=== PATIENT | female | born 1960 | race American Indian/Alaskan Native ===

== ENCOUNTER 2019-07-04 13:12 | Inpatient (IN) | payer BC ==
--- NOTE | 2019-07-04 13:18 | Emergency Department Report ---
HPI - General Time Seen by Provider: 07/04/19 13:14 - HPI HPI: Charge nurse triage --> Room 19 The patient is a 59-year-old female presenting with a chief complaint of dysarthria. Family states at approximately 12:15 this afternoon the patient had difficulty speaking. Patient complained of a slight headache. No other symptoms were noted. EMS was called and arrived on scene states the patient was aphasic. Upon arrival to the ED the patient's symptoms have improved and she is able to speak normally. Location: [See above] Duration: [See above] Quality: [See above] Severity: [See above] Modifying factors: [see above] Context: [see above] Mode of transportation: [not driving] ED Past Medical Hx - Past Medical History Hx Hypertension: Yes Hx Diabetes: Yes - Surgical History Past Surgical History?: No - Family History Family history: no significant ED Review of Systems ROS: Stated complaint: NEURO ISSUES Other details as noted in HPI Constitutional: no symptoms reported Eyes: denies: eye pain ENT: denies: throat pain Respiratory: no symptoms reported Cardiovascular: denies: chest pain Endocrine: no symptoms reported Gastrointestinal: denies: abdominal pain Genitourinary: denies: dysuria Musculoskeletal: denies: back pain Neurological: headache, other (difficulty speaking) Physical Exam - Physical Exam Physical Exam: GENERAL: The patient is well-developed well-nourished female lying on stretcher not appearing to be in acute distress. [] HEENT: Normocephalic. Atraumatic. Extraocular motions are intact. Patient has moist mucous membranes. NECK: Supple. Trachea midline CHEST/LUNGS: There is no respiratory distress noted. HEART/CARDIOVASCULAR: Regular. There is no tachycardia. There is no gallop rub or murmur. ABDOMEN: Abdomen is soft, nontender. Patient has normal bowel sounds. There is no abdominal distention. SKIN: There is no rash. There is no edema. There is no diaphoresis. NEURO: The patient is awake, alert, and oriented. The patient is cooperative. The patient has no focal neurologic deficits. The patient has normal speech. Cranial nerves II through XII grossly intact, no drift MUSCULOSKELETAL: There is no evidence of acute injury. ED Course - Consultations Consultation #1: 07/04/19 14:06 Case discussed with Tele-Neuro ED Medical Decision Making - Lab Data Result diagrams: 07/04/19 14:20 08/03/19 14:20 Laboratory Tests 07/04/19 07/04/19 07/04/19 14:20 14:20 14:20 WBC 8.5 RBC 4.28 Hgb 11.7 Hct 35.6 MCV 83 MCH 27 L MCHC 33 RDW 13.7 Plt Count 232 PT 12.9 INR 1.00 APTT 26.7 Thrombin Time Sodium 141 Potassium 4.2 Chloride 99.8 Carbon Dioxide 31 H Anion Gap 14 BUN 14 Creatinine 0.9 Estimated GFR > 60 BUN/Creatinine Ratio 16 Glucose 98 Calcium 9.6 Troponin T < 0.010 07/04/19 14:20 WBC RBC Hgb Hct MCV MCH MCHC RDW Plt Count PT INR APTT Thrombin Time 16.5 Sodium Potassium Chloride Carbon Dioxide Anion Gap BUN Creatinine Estimated GFR BUN/Creatinine Ratio Glucose Calcium Troponin T - EKG Data -: EKG Interpreted by [place] EKG shows normal: sinus rhythm Rate: normal - EKG Data When compared to previous EKG there are: previous EKG unavailable Interpretation: other (no ischemic changes seen) - Radiology Data Radiology results: report reviewed (CT head), image reviewed (CT head) [place] [address] Cat Scan Report Signed Patient: SOHAN BEDOLLA MR#: [id number] : 1960 Acct:[id number] Age/Sex: 59 / F ADM Date: 07/04/19 Loc: ED Attending Dr: Ordering Physician: JOHN WARD MD Date of Service: 07/04/19 Procedure(s): CT head/brain wo con Accession Number(s): [id number] cc: JOHN WARD MD CT head without contrast Clinical history: Neurological deficits. Findings a colon there is mild diffuse thickening of the calvarium with associated beam hardening artifact at. However, the brain appears to demonstrate appropriate attenuation for age without significant interval change from the CT of 08/22/2010.. The ventricular system is within normal limits in size and configuration. There is no clear CT evidence of acute intracranial hemorrhage or significant mass effect. The visualized nasal sinuses are clear. All CT scans at this location are performed using the CT dose reduction for ALARA by means of automated exposure control. IMPRESSION: There is no clear CT ends of acute intracranial process. The findings were called emergently to the ER physician at the time the study was being completed per the code stroke protocol at. Signer Name: Kahlil Frost MD Signed: 07/04/2019 2:01 PM Workstation Name: [id number] Transcribed By: MR Dictated By: Kahlil Frost MD Electronically Authenticated By: Kahlil Frost MD Signed Date/Time: 07/04/19 1401 DD/ 1355 TD/TT: - Differential Diagnosis TIA, CVA, complex migraine Critical care attestation.: If time is entered above; I have spent that time in minutes in the direct care of this critically ill patient, excluding procedure time. ED Disposition Clinical Impression: Stroke Disposition: DC-09 OP ADMIT IP TO THIS HOSP Is pt being admited?: Yes Does the pt Need Aspirin: No Condition: Fair Referrals: DIONNE BROWN MD [Primary Care Provider] - 3-5 Days Time of Disposition: 15:14 (hospitalist paged (Dr Carter))
[2019-07-04] MEDS ORDERED: NORMODYNE IV ONE (13:44)
[2019-07-04] MEDS ORDERED: NACL 0.9% IV ONE (13:48)
[2019-07-04] MEDS ORDERED: ACTIVASE IV ONE ×2 (13:48)
[2019-07-04] MEDS ORDERED: NORMODYNE IV PRN (13:59)
[2019-07-04] MEDS ORDERED: CARDENE 50 MG in NACL 0.9% 250ML 230 ML IV SCH (14:00)
--- NOTE | 2019-07-04 14:05 | Cat Scan Report ---
CT head without contrast Clinical history: Neurological deficits. Findings a colon there is mild diffuse thickening of the calvarium with associated beam hardening art ifact at. However, the brain appears to demonstrate appropriate attenuation for age without significa nt interval change from the CT of 08/22/2010.. The ventricular system is within normal limits in size and configuration. There is no clear CT evidence of acute intracranial hemorrhage or significant mass effect. The visualized nasal sinuses are clear. All CT scans at this location are performed using th e CT dose reduction for ALARA by means of automated exposure control. IMPRESSION: There is no clear CT ends of acute intracranial process. The findings were called emergently to the ER physician at the time the study was being completed per the code stroke protocol at. Signer Name: Kahlil Frost MD Signed: 07/04/2019 2:01 PM Workstation Name: [id number]
--- NOTE | 2019-07-04 14:27 | Emergency Department Report ---
ED Neuro Deficit HPI - General Chief Complaint: Neuro Symptoms/Deficit Stated Complaint: NEURO ISSUES Time Seen by Provider: 07/04/19 13:14 Source: family, EMS Mode of arrival: Stretcher Limitations: No Limitations - History of Present Illness Initial Comments: [facility] Date of Service: 07/04/2019 13:09:36 Impression: Left Hemispheric MCA Distribution Mechanism of Stroke: Possible Thromboembolic Possible Cardioembolic Metrics: Last Known Well: 07/04/2019 12:15:00 Start Time: 07/04/2019 13:08:48 Arrival Time: 07/04/2019 13:12:00 Stamp Time: 07/04/2019 13:09:36 Time First Login Attempt: 07/04/2019 13:17:00 Video Start Time: 07/04/2019 13:19:51 Symptoms: slurred speech NIHSS Start Assessment Time: 07/04/2019 13:28:00 tPA Verbal Order Time: 07/04/2019 13:48:33 Patient is a candidate for tPA. tPA CPOE Order Time: 07/04/2019 13:52:01 Needle Time: 07/04/2019 14:33:33 Weight Noted by Staff: 149.6 kg Video End Time: 07/04/2019 14:35:24 CT head showed no acute hemorrhage or acute core infarct. CT head was reviewed. Advanced imaging CTA head and neck obtained. ER physician notified of the decision on thrombolytics management. Comments: Paraphasic errors and trouble getting words out. She initially had elevated BP to 201/61 and was given labetalol 10mg with increase to 229/87 so additional 10mg was given it went down to 178/82. Tpa was not yet ready and BP went back up to 208/94. Nicardipine was started and BP came down to 180/84. Verbal Consent to tPA: I have explained to the Patient the nature of the patients condition, the use of tPA fibrinolytic agent, and the benefits to be reasonably expected compared with alternative approaches. I have discussed the likelihood of major risks or complications of this procedure including (if applicable) but not limited to loss of limb function, brain damage, paralysis, hemorrhage, infection, complications from transfusion of blood components, drug reactions, blood clots and loss of life. I have also indicated that with any procedure there is always the possibility of an unexpected complication. All questions were answered and Patient express understanding of the treatment plan and consent to the treatment. Our recommendations are outlined below. Recommendations: IV tPA recommended. tPA bolus given Without Complication. IV tPA Total Dose 90.0 mg IV tPA Bolus Dose 9.0 mg IV tPA Infusion Dose - 81.0 mg Routine post tPA monitoring including neuro checks and blood pressure control during/after treatment Monitor blood pressure Check blood pressure and NIHSS every 15 min for 2 h, then every 30 min for 6 h, and finally every hour for 16 h. Manage Blood Pressure per post tPA protocol. Admission to ICU CT brain 24 hours post tPA NPO until swallowing screen performed and passed No antiplatelet agents or anticoagulants (including heparin for DVT prophylaxis) in first 24 hours No Greene catheter, nasogastric tube, arterial catheter or central venous catheter for 24 hr, unless abssolutely necessary Telemetry Bedside swallow evaluation HOB less than 30 degrees IV Fluid hydration Euglycemia Avoid hyperthermia, PRN acetaminophen DVT prophylaxis Inpatient Neurology Consultation Stroke evaluation as per inpatient neurology recommendations Additional Recommendations: Start Atorvastatin Lipid Panel Check Hgb A1c Dysphagia Screen DVT Prophylaxis Hyperglycemia Treatment as per Primary Team PT/ OT / Speech Therapy Consultation Neurology to Be Consulted for Inpatient Routine Consultation Echocardiogram, TTE Discussed with ED physician History of Present Illness: Patient is a 59 years old Female who presents with symptoms of slurred speech 59 yo F with htn, dm, migraine, and CKD who presents speech changes that occured at 12:15. Patient states that she has a headache and feels tired. The headache started around the same time. She has a distant history of migraines but had not with neurologic deficits. ED consult request, patient brought by EMS. Examination: BP(180/84), Pulse(66) 1A: Level of Consciousness - Alert; keenly responsive + 0 1B: Ask Month and Age - Both Questions Right + 0 1C: Blink Eyes & Squeeze Hands - Performs Both Tasks + 0 2: Test Horizontal Extraocular Movements - Normal + 0 3: Test Visual Rogers - No Visual Loss + 0 4: Test Facial Palsy (Use Grimace if Obtunded) - Normal symmetry + 0 5A: Test Left Arm Motor Drift - No Drift for 10 Seconds + 0 5B: Test Right Arm Motor Drift - No Drift for 10 Seconds + 0 6A: Test Left Leg Motor Drift - No Drift for 5 Seconds + 0 6B: Test Right Leg Motor Drift - No Drift for 5 Seconds + 0 7: Test Limb Ataxia (FNF/Heel-Omalley) - No Ataxia + 0 8: Test Sensation - Mild-Moderate Loss: Less Sharp/More Dull + 1 9: Test Language/Aphasia - Mild-Moderate Aphasia: Some Obvious Changes, Without Significant Limitation + 1 10: Test Dysarthria - Normal + 0 11: Test Extinction/Inattention - No abnormality + 0 NIHSS Score: 2 Patient was informed the Neurology Consult would happen via TeleHealth consult by way of interactive audio and video telecommunications and consented to receiving care in this manner. Due to the immediate potential for life-threatening deterioration due to underlying acute neurologic illness, I spent 35 minutes providing critical care. This time includes time for face to face visit via telemedicine, review of medical records, imaging studies and discussion of findings with providers, the patient and/or family. Dr Shabnam [facility] - Related Data Allergies/Adverse Reactions: Allergies Allergy/AdvReac Type Severity Reaction Status Date / Time No Known Allergies Allergy Verified 07/04/19 13:54 ED Review of Systems ROS: Stated complaint: NEURO ISSUES Other details as noted in HPI Constitutional: no symptoms reported Eyes: denies: eye pain ENT: denies: throat pain Respiratory: no symptoms reported Cardiovascular: denies: chest pain Endocrine: no symptoms reported Gastrointestinal: denies: abdominal pain Genitourinary: denies: dysuria Musculoskeletal: denies: back pain Neurological: headache, other (difficulty speaking) ED Past Medical Hx - Past Medical History Previous Medical History?: Yes Hx Hypertension: Yes Hx Diabetes: Yes Additional medical history: Kidney disease - Surgical History Past Surgical History?: No - Social History Smoking Status: Never Smoker Substance Use Type: None ED Neuro Physical Exam - General Limitations: No Limitations Suspected Stroke: Yes - NIHSS Assessment Interval: Baseline 1a. Level of Consciousness: alert/keenly responsive 1b. LOC Questions: answers both correctly 1c. LOC Commands: performs tasks correctly 2. Best Gaze: normal 3. Visual: no visual loss 4. Facial Palsy: normal symmetrical movement 5b. Motor Arm Right: no drift 5a. Motor Arm Left: no drift 6a. Motor Leg Left: no drift 6b. Motor Leg Right: no drift 7. Limb Ataxia: absent 8. Sensory: mild/moderate sensory loss 9. Best Language: mild/moderate aphasia 10. Dysarthria: normal 11. Extinction/Inattention: no abnormality Total Score: 2 Stroke Severity: Minor Stroke Critical care attestation.: If time is entered above; I have spent that time in minutes in the direct care of this critically ill patient, excluding procedure time. ED Disposition Clinical Impression: Stroke Disposition: DC-09 OP ADMIT IP TO THIS HOSP Is pt being admited?: Yes Condition: Stable Referrals: DIONNE BROWN MD [Primary Care Provider] - 3-5 Days
[2019-07-04 14:55] LABS: Partial Thromboplastin Time 26.7 Sec. (24.2-36.6)
[2019-07-04 14:57] LABS: BUN/Creatinine Ratio 16; Blood Urea Nitrogen 14 mg/dL (7-17); Calcium 9.6 mg/dL (8.4-10.2); Hemolysis Index 2
[2019-07-04 15:10] LABS: Hematocrit 35.6 % (30.3-42.9); Hemoglobin 11.7 gm/dl (10.1-14.3); Mean Corpuscular HGB Conc 33 % (30-34); Mean Corpuscular Volume 83 fl (79-97); Platelet Count 232 K/mm3 (140-440); Red Blood Count 4.28 M/mm3 (3.65-5.03); Red Cell Distribution Width 13.7 % (13.2-15.2)
[2019-07-04] MEDS ORDERED: DILAUDID ONE (15:40)
[2019-07-04] MEDS ORDERED: DILAUDID IV PRN (15:40)
[2019-07-04 16:48] LABS: Giant Platelets Few; RBC Morphology Normal; Total Cells Counted 100
[2019-07-04 16:49] LABS: Platelet Estimate Consistent w Auto
--- NOTE | 2019-07-04 16:59 | History and Physical Report ---
History of Present Illness Date of examination: 07/04/19 Date of admission: 07/04/19 15:19 Chief complaint: Dysarthria since 12:15 PM and is resolved around 2:30 PM History of present illness: 59-year-old female presenting with past medical history of hypertension and diabetes comes in for chief complaint of dysarthria since afternoon around 12:15 PM. During my exam patient says that her dysarthria has resolved. Patient is able to move all 4 extremities. Because of dysarthria it was recommended to give TPA with tele neurologist. As per EMS the patient was transiently aphasic at the time of their arrival. During the EMS ride symptoms improved to dysart hria. Patient able to move all 4 extremities. No syncope or seizures. No fever or chills. No recent travel. Past Medical History Hypertension: Yes Diabetes: Yes Surgical History Past Surgical History?: No Family History Family history: no significant Social history doesn't smoke no alcohol Review of Systems ROS: Stated complaint: NEURO ISSUES Other details as noted in HPI Dysarthria for 2 hours and resolved spontaneously Constitutional: no symptoms reported Eyes: denies: eye pain ENT: denies: throat pain Respiratory: no symptoms reported Cardiovascular: denies: chest pain Endocrine: no symptoms reported Gastrointestinal: denies: abdominal pain Genitourinary: denies: dysuria Musculoskeletal: denies: back pain Neurological: headache, other (difficulty speaking) 14 point review of systems and otherwise negative Medications and Allergies Allergies Allergy/AdvReac Type Severity Reaction Status Date / Time No Known Allergies Allergy Verified 07/04/19 13:54 Active Meds: Active Medications Amlodipine Besylate (Norvasc) 10 mg PO QDAY TAYLOR Carvedilol (Coreg) 12.5 mg PO BID TAYLOR Hydromorphone HCl (Dilaudid) 1 mg IV Q3HR PRN PRN Reason: Pain , Severe (7-10) Last Admin: 07/04/19 15:43 Dose: 1 mg Documented by: Nicardipine HCl 50 mg/ Sodium (Chloride) 250 mls @ 25 mls/hr IV TITR TAYLOR; Protocol Last Titration: 07/04/19 14:45 Dose: 7.5 mg/hr, 37.5 mls/hr Documented by: Labetalol HCl (Normodyne) 10 mg IV Q5MIN PRN PRN Reason: to maintain SBP < 180 Last Admin: 07/04/19 14:15 Dose: 10 mg Documented by: Losartan Potassium (Cozaar) 100 mg PO QDAY TAYLOR Exam - Constitutional Vitals: Temp Pulse Resp BP Pulse Ox 97.9 F 68 16 142/71 97 07/04/19 15:51 07/04/19 15:51 07/04/19 15:51 07/04/19 15:51 07/04/19 15:51 General appearance: Present: no acute distress, well-nourished, other (able to talk clearly) - EENT Eyes: Present: PERRL ENT: hearing intact, clear oral mucosa - Neck Neck: Present: supple, normal ROM - Respiratory Respiratory effort: normal Respiratory: bilateral: CTA - Cardiovascular Heart rate: 76 Rhythm: regular Heart Sounds: Present: S1 & S2. Absent: rub, click - Extremities Extremities: no ischemia, pulses intact, pulses symmetrical, No edema Peripheral Pulses: within normal limits - Abdominal General gastrointestinal: Present: soft, non-tender, non-distended, normal bowel sounds Female genitourinary: Present: normal - Integumentary Integumentary: Present: clear, warm, dry - Musculoskeletal Musculoskeletal: strength equal bilaterally (power is 5 over 5 in all 4 extremities) - Psychiatric Psychiatric: appropriate mood/affect, intact judgment & insight - Neurologic Neurologic: CNII-XII intact, moves all extremities - Allied Health Allied health notes reviewed: nursing, case management Results - Labs CBC & Chem 7: 07/04/19 14:20 07/04/19 14:20 Labs: Laboratory Last Values WBC 8.5 K/mm3 (4.5-11.0) 07/04/19 14:20 RBC 4.28 M/mm3 (3.65-5.03) 07/04/19 14:20 Hgb 11.7 gm/dl (10.1-14.3) 07/04/19 14:20 Hct 35.6 % (30.3-42.9) 07/04/19 14:20 MCV 83 fl (79-97) 07/04/19 14:20 MCH 27 pg (28-32) L 07/04/19 14:20 MCHC 33 % (30-34) 07/04/19 14:20 RDW 13.7 % (13.2-15.2) 07/04/19 14:20 Plt Count 232 K/mm3 (140-440) 07/04/19 14:20 Add Manual Diff Complete 07/04/19 14:20 Total Counted 100 07/04/19 14:20 Seg Neuts % (Manual) 51.0 % (40.0-70.0) 07/04/19 14:20 0 % 07/04/19 14:20 35.0 % (13.4-35.0) 07/04/19 14:20 Reactive Lymphs % (Man) 0 % 07/04/19 14:20 6.0 % (0.0-7.3) 07/04/19 14:20 3.0 % (0.0-4.3) 07/04/19 14:20 5.0 % (0.0-1.8) H 07/04/19 14:20 0 % 07/04/19 14:20 0 % 07/04/19 14:20 0 % 07/04/19 14:20 0 % 07/04/19 14:20 Nucleated RBC % Not Reportable 07/04/19 14:20 Seg Neutrophils # Man 4.3 K/mm3 (1.8-7.7) 07/04/19 14:20 Band Neutrophils # 0.0 K/mm3 07/04/19 14:20 3.0 K/mm3 (1.2-5.4) 07/04/19 14:20 Abs React Lymphs (Man) 0.0 K/mm3 07/04/19 14:20 0.5 K/mm3 (0.0-0.8) 07/04/19 14:20 0.3 K/mm3 (0.0-0.4) 07/04/19 14:20 0.4 K/mm3 (0.0-0.1) H 07/04/19 14:20 0.0 K/mm3 07/04/19 14:20 0.0 K/mm3 07/04/19 14:20 0.0 K/mm3 07/04/19 14:20 Blast Cells # 0.0 K/mm3 07/04/19 14:20 WBC Morphology Not Reportable 07/04/19 14:20 Hypersegmented Neuts Not Reportable 07/04/19 14:20 Hyposegmented Neuts Not Reportable 07/04/19 14:20 Hypogranular Neuts Not Reportable 07/04/19 14:20 Not Reportable 07/04/19 14:20 Not Reportable 07/04/19 14:20 Not Reportable 07/04/19 14:20 Not Reportable 07/04/19 14:20 Not Reportable 07/04/19 14:20 Not Reportable 07/04/19 14:20 Consistent w auto 07/04/19 14:20 Not Reportable 07/04/19 14:20 Plt Clumps, EDTA Not Reportable 07/04/19 14:20 Not Reportable 07/04/19 14:20 Few 07/04/19 14:20 Not Reportable 07/04/19 14:20 Plt Morphology Comment Not Reportable 07/04/19 14:20 RBC Morphology Normal 07/04/19 14:20 Dimorphic RBCs Not Reportable 07/04/19 14:20 Not Reportable 07/04/19 14:20 Not Reportable 07/04/19 14:20 Not Reportable 07/04/19 14:20 Not Reportable 07/04/19 14:20 Not Reportable 07/04/19 14:20 Not Reportable 07/04/19 14:20 Not Reportable 07/04/19 14:20 Not Reportable 07/04/19 14:20 Not Reportable 07/04/19 14:20 Not Reportable 07/04/19 14:20 Not Reportable 07/04/19 14:20 Not Reportable 07/04/19 14:20 Not Reportable 07/04/19 14:20 Not Reportable 07/04/19 14:20 Not Reportable 07/04/19 14:20 Not Reportable 07/04/19 14:20 Not Reportable 07/04/19 14:20 Not Reportable 07/04/19 14:20 Not Reportable 07/04/19 14:20 Acanthocytes (Spur) Not Reportable 07/04/19 14:20 Rouleaux Not Reportable 07/04/19 14:20 Not Reportable 07/04/19 14:20 Not Reportable 07/04/19 14:20 Not Reportable 07/04/19 14:20 Not Reportable 07/04/19 14:20 Hem Pathologist Commnt No 07/04/19 14:20 PT 12.9 Sec. (12.2-14.9) 07/04/19 14:20 INR 1.00 (0.87-1.13) 07/04/19 14:20 APTT 26.7 Sec. (24.2-36.6) 07/04/19 14:20 16.5 Sec. (15.1-19.6) 07/04/19 14:20 Sodium 141 mmol/L (137-145) 07/04/19 14:20 Potassium 4.2 mmol/L (3.6-5.0) 07/04/19 14:20 Chloride 99.8 mmol/L (98-107) 07/04/19 14:20 Carbon Dioxide 31 mmol/L (22-30) H 07/04/19 14:20 14 mmol/L 07/04/19 14:20 BUN 14 mg/dL (7-17) 07/04/19 14:20 0.9 mg/dL (0.7-1.2) 07/04/19 14:20 Estimated GFR > 60 ml/min 07/04/19 14:20 16 % 07/04/19 14:20 Glucose 98 mg/dL (65-100) 07/04/19 14:20 Calcium 9.6 mg/dL (8.4-10.2) 07/04/19 14:20 < 0.010 ng/mL (0.00-0.029) 07/04/19 14:20 Short CBC 07/04/19 Range/Units 14:20 WBC 8.5 (4.5-11.0) K/mm3 Hgb 11.7 (10.1-14.3) gm/dl Hct 35.6 (30.3-42.9) % Plt Count 232 (140-440) K/mm3 BMP 07/04/19 14:20 Sodium 141 Potassium 4.2 Chloride 99.8 Carbon Dioxide 31 H BUN 14 Creatinine 0.9 Glucose 98 Calcium 9.6 Cardiac Enzymes 07/04/19 Range/Units 14:20 Troponin T < 0.010 (0.00-0.029) ng/mL - Imaging and Cardiology EKG: report reviewed CT Scan - head: report reviewed Imaging and Cardiology: Head CT IMPRESSION: There is no clear CT evidence of acute intracranial process. The findings were called emergently to the ER physician at the time the study was being completed per the code stroke protocol at. Assessment and Plan Assessment and plan: Critical care statement The high probability of clinically significant, sudden or life-threatening deterioration of the pulmonary, cardiac, renal systems required my full and back attention, intervention and personal management. The aggregate critical care time was 40 minutes. This time is in addition to times when performing reported procedures but includes the following #1 data review and interpretation #2 patient assessment and monitoring of vital signs #3 documentation #4 medication orders and management Advance Directives: Yes (full code) VTE prophylaxis?: Chemical Plan of care discussed with patient/family: Yes - Patient Problems (1) Acute cerebrovascular accident Current Visit: Yes Status: Acute Plan to address problem: Patient treated as acute cerebrovascular accident by the telemetry neurologist Patient has dysarthria which is resolved Able to move all 4 extremities No focal deficits TIA versus acute CVA Patient is to be on Plavix and aspirin Inpatient workup for stroke MRI MRA echocardiogram and carotid duplex scan ordered Neurology consult ordered (2) Hypertensive emergency Current Visit: Yes Status: Acute Plan to address problem: Patient is on Cardizem drip Losartan 100 mg once a day amlodipine 10 mg once a day and Coreg 12.5 twice a day added to her regimen Compliance issues addressed We will DC the Cardene drip once the blood pressure is under control (3) Hypertension Current Visit: Yes Status: Chronic Qualifiers: Hypertension type: essential hypertension Qualified Code(s): I10 - Essential (primary) hypertension Plan to address problem: Continue antihypertensives (4) Type 2 diabetes mellitus Current Visit: Yes Status: Chronic Qualifiers: 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
[2019-07-04] MEDS ORDERED: COZAAR PO SCH (17:00)
[2019-07-04] MEDS: NORVASC PO SCH (17:05)
[2019-07-04] MEDS: COZAAR PO SCH (17:05)
[2019-07-04] MEDS: COREG PO SCH ×2 (17:05→22:46)
[2019-07-04] MEDS ORDERED: COZAAR ONE (17:16)
[2019-07-04] MEDS ORDERED: COREG ONE ×2 (17:16→22:03)
[2019-07-04] MEDS ORDERED: NORVASC ONE (17:16)
[2019-07-04] MEDS ORDERED: SODIUM CHLORIDE FLUSH SYRINGE 10 ML IV PRN (17:47)
--- NOTE | 2019-07-04 17:55 | Cat Scan Report ---
CTA neck with and without contrast CLINICAL HISTORY: Cerebrovascular accident. Technique: Multiple contiguous postcontrast axial CT images of the neck were obtained at 0.63 mm inte rvals. 3 plane MIP reconstructions were produced. Precontrast localizing images were also performed. All CT scans at this location are performed using the CT dose reduction for ALARA by means of automat ed exposure control. FINDINGS: The study is degraded by beam hardening artifact resulting from the patient's body habitus. However, there are small foci of calcification involving the carotid bifurcations and proximal inter nal carotid arteries without significant stenosis by NASCET criteria. There is medial course and posi tioning of the carotid bifurcations which represents a developmental variant. There is also developme ntal common origin of the brachiocephalic and left common carotid arteries. The origin of the left vertebral artery is obscured by the beam hardening. However, there is no clear evidence of significant narrowing involving the visualized segments at. The right vertebral artery a lso appears to demonstrate appropriate caliber without significant focal narrowing. All CT scans at t his location are performed using the CT dose reduction for ALARA by means of automated exposure contr ol. IMPRESSION: There is minimal calcification involving the carotid bifurcations without significant stenosis of srinivasan aterally by NASCET criteria. Signer Name: Kahlil Frost MD Signed: 07/04/2019 5:50 PM Workstation Name: [id number]
--- NOTE | 2019-07-04 19:13 | Cat Scan Report ---
CTA head with and without IV contrast. CLINICAL HISTORY: Cerebrovascular accident. Technique: Multiple contiguous postcontrast CT images of the head were obtained at 0.63 mm intervals. 3 plane MIP reconstructions were obtained. Precontrast localizing images were also performed. CT scan s at this location are performed using the CT dose reduction for Snag[place] by means of automated exposure control. FINDINGS: The beam hardening and suboptimal contrast bolus a degrade the image quality at. However, t here is mild calcification involving the distal internal carotid arteries without significant focal s tenosis by NASCET criteria. Contrast is noted within the cavernous sinuses a given the timing of the bolus at. However, there is no clear CT evidence of intracranial aneurysm. There is developmental origin of the left SWITCHBOARD CLERK at. There is no significant focal narrowing invol ving the vertebral basilar system or proximal cerebral branches. The dural venous sinuses appear to o pacify with contrast. IMPRESSION: This mild calcification involving the distal internal carotid arteries. However, there is no CTA evid ence of significant focal stenosis involving intracranial vessels. Signer Name: Kahlil Frost MD Signed: 07/04/2019 7:08 PM Workstation Name: [id number]
[2019-07-04] MEDS ORDERED: PERCOCET 5/325 ONE (22:14)
[2019-07-04] MEDS: PERCOCET 5/325 PO PRN (22:22)
[2019-07-04] MEDS: PEPCID IV SCH (22:46)
[2019-07-04] MEDS: SODIUM CHLORIDE FLUSH SYRINGE 10 ML IV SCH (22:46)
[2019-07-05 03:47] LABS: Hematocrit 33.8 % (30.3-42.9); Hemoglobin 11.1 gm/dl (10.1-14.3); Mean Corpuscular HGB Conc 33 % (30-34); Mean Corpuscular Volume 83 fl (79-97); Platelet Count 235 K/mm3 (140-440); Red Blood Count 4.07 M/mm3 (3.65-5.03); Red Cell Distribution Width 13.6 % (13.2-15.2)
[2019-07-05 04:01] LABS: Alanine Aminotransferase 13 units/L (7-56); Albumin 3.4 g/dL (3.9-5); BUN/Creatinine Ratio 13; Blood Urea Nitrogen 12 mg/dL (7-17); Calcium 8.9 mg/dL (8.4-10.2); Hemolysis Index 4
--- NOTE | 2019-07-05 04:54 | Consultation ---
HISTORY OF PRESENT ILLNESS: A 59-year-old black female, history obtained from the fire support specialist of [facility] EMS unit. The patient apparently ____ the house that she was at home this morning, got up and then abruptly stopped talking. Family members are not available to get a cross history from. She was brought to the CT scan room. My concern of course was whether she had some acute intracerebral hemorrhage. Reviewing her initial CT scan, it is fairly unremarkable to my view. I do not see any acute abnormalities. No prior nunez or white matter issues. What is striking actually is that given her age of 59, she has really intact cortical, sulcal and gyral patterns, although I do not see any evidence to suggest edema on careful review of this. Nonetheless, I will comment on that. The remainder of the CT scan cuts are not at all remarkable. I clearly do not see a hemorrhage or any acute lesions or underlying malignancy that would account for the patient's symptoms. The remainder of the Emergency Room workup is pending, obviously, labs and monitoring of her vital at this point, further assessment, depending on that determination further comments will be made after reviewing the history from the EMS directly and reviewing the images. The patient is currently undergoing further evaluation and management of symptoms that may suggest stroke and/or TIA, although pending more detailed history from family, as past medical history would indicate she may have had a stroke 3 years ago, that cannot be confirmed by basing my review of the records at this point. JOB# [id number] MARYANN/SHAMEKA
[2019-07-05 05:08] LABS: Basophils % (Manual) 0 % (0.0-1.8); Total Cells Counted 100
[2019-07-05 05:09] LABS: Platelet Estimate Consistent w Auto; RBC Morphology Normal
--- NOTE | 2019-07-05 09:11 | Progress Note ---
Subjective Date of service: 07/05/19 Interval history: went over the CTA of the head and no major occlusive disease is noted... therefore endovascular clot extraction via catheter is not indicated as no clot found ECHO is critical evaluation element at this point Objective - Vital Sign Vital Signs - 12hr 07/04/19 07/04/19 07/04/19 21:15 22:15 22:31 Pulse Rate Blood Pressure 110/42 123/59 130/68 O2 Sat by Pulse 98 97 96 Oximetry 07/04/19 07/04/19 07/04/19 22:33 22:45 22:46 Pulse Rate 53 L Blood Pressure 130/68 124/64 O2 Sat by Pulse 99 98 Oximetry 07/04/19 07/04/19 07/04/19 23:01 23:15 23:31 Pulse Rate Blood Pressure 134/64 129/64 123/60 O2 Sat by Pulse 96 100 96 Oximetry 07/04/19 07/05/19 07/05/19 23:45 00:00 00:16 Pulse Rate Blood Pressure 119/60 112/57 109/58 O2 Sat by Pulse 98 97 91 Oximetry 07/05/19 07/05/19 07/05/19 00:30 00:45 01:00 Pulse Rate Blood Pressure 112/54 102/57 121/61 O2 Sat by Pulse 90 97 92 Oximetry 07/05/19 07/05/19 07/05/19 01:15 01:30 01:45 Pulse Rate Blood Pressure 121/65 111/58 101/59 O2 Sat by Pulse 93 90 92 Oximetry 07/05/19 07/05/19 07/05/19 02:00 02:15 02:30 Pulse Rate Blood Pressure 106/62 101/57 103/57 O2 Sat by Pulse 88 89 89 Oximetry 07/05/19 07/05/19 07/05/19 02:45 03:00 03:15 Pulse Rate Blood Pressure 107/66 105/62 109/61 O2 Sat by Pulse 89 90 89 Oximetry 07/05/19 07/05/19 07/05/19 03:31 03:45 04:00 Pulse Rate Blood Pressure 129/70 116/63 118/61 O2 Sat by Pulse 95 96 93 Oximetry 07/05/19 07/05/19 07/05/19 04:15 04:30 04:45 Pulse Rate Blood Pressure 120/58 113/62 103/49 O2 Sat by Pulse 98 94 99 Oximetry 07/05/19 07/05/19 07/05/19 05:15 05:30 05:45 Pulse Rate Blood Pressure 105/48 113/44 115/55 O2 Sat by Pulse 91 85 92 Oximetry 07/05/19 07/05/19 07/05/19 06:00 06:15 06:30 Pulse Rate Blood Pressure 112/53 117/61 115/58 O2 Sat by Pulse 92 94 91 Oximetry - Laboratory Findings CBC and BMP: 07/05/19 03:36 07/05/19 03:36 Abnormal Lab Findings: Abnormal Labs 07/04/19 07/04/19 07/05/19 14:20 14:20 03:36 MCH 27 L 27 L Lymphocytes % (Manual) 41.0 H Basophils % (Manual) 5.0 H Basophils # (Manual) 0.4 H Carbon Dioxide 31 H Albumin 07/05/19 03:36 MCH Lymphocytes % (Manual) Basophils % (Manual) Basophils # (Manual) Carbon Dioxide Albumin 3.4 L
[2019-07-05] MEDS ORDERED: PERCOCET 5/325 ONE ×2 (10:50→18:29)
[2019-07-05] MEDS ORDERED: COZAAR ONE (11:10)
[2019-07-05] MEDS ORDERED: COREG ONE (11:10)
[2019-07-05] MEDS ORDERED: PEPCID ONE (11:11)
[2019-07-05] MEDS ORDERED: NORVASC ONE (11:12)
[2019-07-05] MEDS: PEPCID IV SCH ×2 (11:14→22:03)
[2019-07-05] MEDS: NORVASC PO SCH (11:15)
[2019-07-05] MEDS: COREG PO SCH ×2 (11:16→22:04)
[2019-07-05] MEDS: COZAAR PO SCH (11:16)
[2019-07-05] MEDS: SODIUM CHLORIDE FLUSH SYRINGE 10 ML IV SCH ×2 (11:17→22:03)
[2019-07-05] MEDS: PERCOCET 5/325 PO PRN (11:17)
--- NOTE | 2019-07-05 12:38 | Progress Note ---
Assessment and Plan Assessment and plan: -- Acute cerebrovascular accident Current Visit: Yes Status: Acute Plan to address problem: S/P TPA ,post TPA protocol followed Patient's dysarthria and weakness completely resolved MRI/MRA brain tomorrow,PT,OT,neurology following Antiplatelets and Lovenox 24 hours after TPA Physical therapy occupational therapy, rehabilitation Work Up: CT head without contrast CTA head without contrast CTA neck; ECHO Carotid doppler --Hypertensive emergency present on admission; Current Visit: Yes Status: Acute Plan to address problem: S/P Cardene drip. Blood pressure is well controlled Continue current antihypertensives -- H/O Hypertension Current Visit: Yes Status: Chronic Plan to address problem: Continue antihypertensives --Type 2 diabetes mellitus Current Visit: Yes Status: Chronic Plan to address problem: Accu-Cheks, sliding scale coverage, ADA diet Check hemoglobin A1c heparin 5.7 --Moderate malnutrition; Nutrition supplements and supportive care --DVT prophylaxis Current Visit: Yes Status: Acute . Plan to address problem: Patient had TPA/SCD, Lovenox on day 2 Down grade to Telemetry after 24 hours of TPA Cr Care time 35 min History Interval history: Patient seen and examined and awaiting ICU bed assignment Speech clear weakness completely resolved S/P TPA ,Tolerated oral diet Vital signs noted Hospitalist Physical - Constitutional Vitals: Temp Pulse Resp BP Pulse Ox 98.0 F 58 L 20 128/74 100 07/05/19 09:00 07/05/19 11:16 07/05/19 09:00 07/05/19 11:16 07/05/19 09:00 General appearance: Present: no acute distress, well-nourished, obese (morbidly obese), other (clear speech) - EENT Eyes: Present: PERRL, EOM intact - Neck Neck: Present: supple, normal ROM - Respiratory Respiratory effort: normal Respiratory: bilateral: diminished, negative: rales, rhonchi, wheezing - Cardiovascular Rhythm: regular Heart Sounds: Present: S1 & S2 - Extremities Extremities: no ischemia, No edema - Abdominal General gastrointestinal: soft, non-tender, non-distended, normal bowel sounds - Integumentary Integumentary: Present: clear, warm - Psychiatric Psychiatric: appropriate mood/affect, cooperative - Neurologic Neurologic: moves all extremities ( speech clear, motor power 5 x 5 all extremities, sensory intact) Results - Labs CBC & Chem 7: 07/05/19 03:36 07/05/19 03:36 Labs: Laboratory Last Values WBC 9.6 K/mm3 (4.5-11.0) 07/05/19 03:36 RBC 4.07 M/mm3 (3.65-5.03) 07/05/19 03:36 Hgb 11.1 gm/dl (10.1-14.3) 07/05/19 03:36 Hct 33.8 % (30.3-42.9) 07/05/19 03:36 MCV 83 fl (79-97) 07/05/19 03:36 MCH 27 pg (28-32) L 07/05/19 03:36 MCHC 33 % (30-34) 07/05/19 03:36 RDW 13.6 % (13.2-15.2) 07/05/19 03:36 Plt Count 235 K/mm3 (140-440) 07/05/19 03:36 Add Manual Diff Complete 07/05/19 03:36 Total Counted 100 07/05/19 03:36 Seg Neuts % (Manual) 53.0 % (40.0-70.0) 07/05/19 03:36 0 % 07/05/19 03:36 41.0 % (13.4-35.0) H 07/05/19 03:36 Reactive Lymphs % (Man) 0 % 07/05/19 03:36 3.0 % (0.0-7.3) 07/05/19 03:36 3.0 % (0.0-4.3) 07/05/19 03:36 0 % (0.0-1.8) 07/05/19 03:36 0 % 07/05/19 03:36 0 % 07/05/19 03:36 0 % 07/05/19 03:36 0 % 07/05/19 03:36 Nucleated RBC % Not Reportable 07/05/19 03:36 Seg Neutrophils # Man 5.1 K/mm3 (1.8-7.7) 07/05/19 03:36 Band Neutrophils # 0.0 K/mm3 07/05/19 03:36 3.9 K/mm3 (1.2-5.4) 07/05/19 03:36 Abs React Lymphs (Man) 0.0 K/mm3 07/05/19 03:36 0.3 K/mm3 (0.0-0.8) 07/05/19 03:36 0.3 K/mm3 (0.0-0.4) 07/05/19 03:36 0.0 K/mm3 (0.0-0.1) 07/05/19 03:36 0.0 K/mm3 07/05/19 03:36 0.0 K/mm3 07/05/19 03:36 0.0 K/mm3 07/05/19 03:36 Blast Cells # 0.0 K/mm3 07/05/19 03:36 WBC Morphology Not Reportable 07/05/19 03:36 Hypersegmented Neuts Not Reportable 07/05/19 03:36 Hyposegmented Neuts Not Reportable 07/05/19 03:36 Hypogranular Neuts Not Reportable 07/05/19 03:36 Not Reportable 07/05/19 03:36 Not Reportable 07/05/19 03:36 Not Reportable 07/05/19 03:36 Not Reportable 07/05/19 03:36 Not Reportable 07/05/19 03:36 Not Reportable 07/05/19 03:36 Consistent w auto 07/05/19 03:36 Not Reportable 07/05/19 03:36 Plt Clumps, EDTA Not Reportable 07/05/19 03:36 Not Reportable 07/05/19 03:36 Not Reportable 07/05/19 03:36 Not Reportable 07/05/19 03:36 Plt Morphology Comment Not Reportable 07/05/19 03:36 RBC Morphology Normal 07/05/19 03:36 Dimorphic RBCs Not Reportable 07/05/19 03:36 Not Reportable 07/05/19 03:36 Not Reportable 07/05/19 03:36 Not Reportable 07/05/19 03:36 Not Reportable 07/05/19 03:36 Not Reportable 07/05/19 03:36 Not Reportable 07/05/19 03:36 Not Reportable 07/05/19 03:36 Not Reportable 07/05/19 03:36 Not Reportable 07/05/19 03:36 Not Reportable 07/05/19 03:36 Not Reportable 07/05/19 03:36 Not Reportable 07/05/19 03:36 Not Reportable 07/05/19 03:36 Not Reportable 07/05/19 03:36 Not Reportable 07/05/19 03:36 Not Reportable 07/05/19 03:36 Not Reportable 07/05/19 03:36 Not Reportable 07/05/19 03:36 Not Reportable 07/05/19 03:36 Acanthocytes (Spur) Not Reportable 07/05/19 03:36 Rouleaux Not Reportable 07/05/19 03:36 Not Reportable 07/05/19 03:36 Not Reportable 07/05/19 03:36 Not Reportable 07/05/19 03:36 Not Reportable 07/05/19 03:36 Hem Pathologist Commnt No 07/05/19 03:36 PT 12.9 Sec. (12.2-14.9) 07/04/19 14:20 INR 1.00 (0.87-1.13) 07/04/19 14:20 APTT 26.7 Sec. (24.2-36.6) 07/04/19 14:20 16.5 Sec. (15.1-19.6) 07/04/19 14:20 Sodium 137 mmol/L (137-145) 07/05/19 03:36 Potassium 4.2 mmol/L (3.6-5.0) 07/05/19 03:36 Chloride 100.5 mmol/L (98-107) 07/05/19 03:36 Carbon Dioxide 28 mmol/L (22-30) 07/05/19 03:36 13 mmol/L 07/05/19 03:36 BUN 12 mg/dL (7-17) 07/05/19 03:36 0.9 mg/dL (0.7-1.2) 07/05/19 03:36 Estimated GFR > 60 ml/min 07/05/19 03:36 13 % 07/05/19 03:36 Glucose 88 mg/dL (65-100) 07/05/19 03:36 5.7 % (4-6) 07/05/19 03:36 Calcium 8.9 mg/dL (8.4-10.2) 07/05/19 03:36 0.60 mg/dL (0.1-1.2) 07/05/19 03:36 AST 18 units/L (5-40) 07/05/19 03:36 ALT 13 units/L (7-56) 07/05/19 03:36 71 units/L (35-129) 07/05/19 03:36 < 0.010 ng/mL (0.00-0.029) 07/04/19 14:20 7.4 g/dL (6.3-8.2) 07/05/19 03:36 3.4 g/dL (3.9-5) L 07/05/19 03:36 0.9 % 07/05/19 03:36 Active Medications - Current Medications Current Medications: Generic Name Dose Route Start Last Admin Trade Name Freq PRN Reason Stop Dose Admin Alprazolam 0.25 mg 07/04/19 17:47 Xanax PO Q8H PRN Anxiety Amlodipine Besylate 10 mg 07/04/19 17:00 07/05/19 11:15 Norvasc PO 10 mg QDAY TAYLOR Administration Carvedilol 12.5 mg 07/04/19 16:44 07/05/19 11:16 Coreg PO Not Given BID TAYLOR Famotidine 20 mg 07/04/19 22:00 07/05/19 11:14 Pepcid IV 20 mg BID TAYLOR Administration Hydromorphone HCl 1 mg 07/04/19 15:40 07/04/19 15:43 Dilaudid IV 1 mg Q3HR PRN Administration Pain , Severe (7-10) Labetalol HCl 10 mg 07/04/19 13:59 07/04/19 14:15 Normodyne IV 10 mg Q5MIN PRN Administration to maintain SBP < 180 Losartan Potassium 100 mg 07/04/19 16:50 07/05/19 11:16 Cozaar PO Not Given QDAY TAYLOR Oxycodone/Acetaminophen 1 tab 07/04/19 17:47 07/05/19 11:17 Percocet 5/325 PO 1 tab Q6H PRN Administration Pain, Moderate (4-6) Sodium Chloride 10 ml 07/04/19 22:00 07/05/19 11:17 Sodium Chloride Flush Syringe 10 Ml IV 10 ml BID TAYLOR Administration Sodium Chloride 10 ml 07/04/19 17:47 Sodium Chloride Flush Syringe 10 Ml IV PRN PRN LINE FLUSH Nutrition/Malnutrition Assess - Dietary Evaluation Nutrition/Malnutrition Findings: Nutrition Notes Start: 07/05/19 10:27 Freq: Status: Active Protocol: Document 07/05/19 10:27 RM (Rec: 07/05/19 10:30 RM [id number]) Nutrition Notes Need for Assessment generated from: MD Order Initial or Follow up Brief Note Current Diagnosis Diabetes Labs/Tests A1c 5.7 Subjective/Other Information Consulted for DM diet education. Pt in ED. Nutrition Intervention Follow-Up By: 07/06/19 Additional Comments Follow for DM diet education
--- NOTE | 2019-07-05 14:54 | Event Note ---
Date: 07/05/19 Patient presented to ED yesterday with stroke like symptoms. Evaluated by Teleneurology and deemed an appropriate candidate for TPA. Administered yesterday around 1430. She has met her 24 hour ICU monitoring criteria and does not need to come to unit as she was a hold in the ED. Will ask IMS to downgrade. Chart reviewed and labs seen.
--- NOTE | 2019-07-05 15:55 | Progress Note ---
Subjective Date of service: 07/05/19 Interval history: agree with Dr. Valencia about bed placement decision patient seen by me during stroke alert and tPA seemed reasonable given clinical setting Objective - Vital Sign Vital Signs - 12hr 07/05/19 07/05/19 07/05/19 04:00 04:15 04:30 Temperature Pulse Rate Respiratory Rate Blood Pressure 118/61 120/58 113/62 Blood Pressure [Left] O2 Sat by Pulse 93 98 94 Oximetry 07/05/19 07/05/19 07/05/19 04:45 05:15 05:30 Temperature Pulse Rate Respiratory Rate Blood Pressure 103/49 105/48 113/44 Blood Pressure [Left] O2 Sat by Pulse 99 91 85 Oximetry 07/05/19 07/05/19 07/05/19 05:45 06:00 06:15 Temperature Pulse Rate Respiratory Rate Blood Pressure 115/55 112/53 117/61 Blood Pressure [Left] O2 Sat by Pulse 92 92 94 Oximetry 07/05/19 07/05/19 07/05/19 06:30 07:22 08:22 Temperature 97.8 F 97.8 F Pulse Rate 68 68 Respiratory 20 20 Rate Blood Pressure 115/58 Blood Pressure 144/75 133/78 [Left] O2 Sat by Pulse 91 100 100 Oximetry 07/05/19 07/05/19 07/05/19 09:00 11:15 11:16 Temperature 98.0 F Pulse Rate 77 58 L 58 L Respiratory 20 Rate Blood Pressure 128/74 128/74 Blood Pressure 138/79 [Left] O2 Sat by Pulse 100 Oximetry - Laboratory Findings CBC and BMP: 07/05/19 03:36 07/05/19 03:36 Abnormal Lab Findings: Abnormal Labs 07/04/19 07/04/19 07/05/19 14:20 14:20 03:36 MCH 27 L 27 L Lymphocytes % (Manual) 41.0 H Basophils % (Manual) 5.0 H Basophils # (Manual) 0.4 H Carbon Dioxide 31 H Albumin 07/05/19 03:36 MCH Lymphocytes % (Manual) Basophils % (Manual) Basophils # (Manual) Carbon Dioxide Albumin 3.4 L
[2019-07-05 16:36] LABS: Chol/HDL Ratio 4.21 %
[2019-07-05] MEDS: XANAX PO PRN (22:03)
[2019-07-05] MEDS ORDERED: D50W (25GM) Syringe IV PRN (22:07)
[2019-07-06] MEDS: HumuLIN R SUB-Q SCH ×4 (08:00→21:32)
--- NOTE | 2019-07-06 08:18 | Progress Note ---
Subjective Date of service: 07/06/19 Interval history: patient was evaluated in the ED for stroke scale post getting tPA the exam was entirely normal and stroke scale was zero... I spoke with the daughter and there were no prior similar episodes that suggest TIA os stroke await results of the MRI and the ECHO as the incident as described in my first note certainly sounded embolic but could well have been seizure,,, excellent recovery from the incident as I describe what EMS was dealing with Thanks Objective - Vital Sign Vital Signs - 12hr 07/05/19 07/05/19 07/06/19 22:04 23:41 02:41 Temperature 98.0 F Pulse Rate 54 L 59 L 59 L Respiratory 18 Rate Blood Pressure 131/58 92/37 O2 Sat by Pulse 96 Oximetry 07/06/19 07/06/19 05:06 07:58 Temperature 98.0 F 98.1 F Pulse Rate 59 L 67 Respiratory 20 18 Rate Blood Pressure 110/40 117/68 O2 Sat by Pulse 94 85 Oximetry - Laboratory Findings CBC and BMP: 07/05/19 03:36 07/05/19 03:36 Abnormal Lab Findings: Abnormal Labs 07/04/19 07/04/19 07/05/19 14:20 14:20 03:36 MCH 27 L 27 L Lymphocytes % (Manual) 41.0 H Basophils % (Manual) 5.0 H Basophils # (Manual) 0.4 H Carbon Dioxide 31 H POC Glucose Albumin Triglycerides 07/05/19 07/05/19 07/05/19 03:36 16:07 20:44 MCH Lymphocytes % (Manual) Basophils % (Manual) Basophils # (Manual) Carbon Dioxide POC Glucose 109 H Albumin 3.4 L Triglycerides 184 H
[2019-07-06] MEDS ORDERED: LOVENOX SUB-Q SCH (10:00)
[2019-07-06] MEDS: LOVENOX SUB-Q SCH (11:00)
[2019-07-06] MEDS: ASPIRIN PO SCH (11:00)
[2019-07-06] MEDS: PEPCID IV SCH (11:00)
[2019-07-06] MEDS: NORVASC PO SCH (11:00)
[2019-07-06] MEDS: COZAAR PO SCH (11:00)
[2019-07-06] MEDS: SODIUM CHLORIDE FLUSH SYRINGE 10 ML IV SCH ×2 (11:00→21:36)
[2019-07-06] MEDS: COREG PO SCH ×2 (11:19→21:34)
[2019-07-06] MEDS: PERCOCET 5/325 PO PRN ×2 (14:03→21:34)
--- NOTE | 2019-07-06 16:51 | Progress Note ---
Subjective Date of service: 07/06/19 Interval history: r epeat CT not as yet done I will check back Objective - Vital Sign Vital Signs - 12hr 07/06/19 07/06/19 07/06/19 05:06 07:58 08:00 Temperature 98.0 F 98.1 F Pulse Rate 59 L 67 Respiratory 20 18 16 Rate Blood Pressure 110/40 117/68 O2 Sat by Pulse 94 85 Oximetry 07/06/19 07/06/19 07/06/19 11:00 11:14 11:19 Temperature Pulse Rate 60 53 L 60 Respiratory Rate Blood Pressure 137/76 137/76 137/76 O2 Sat by Pulse 98 Oximetry 07/06/19 16:28 Temperature Pulse Rate Respiratory Rate Blood Pressure O2 Sat by Pulse 97 Oximetry - Laboratory Findings CBC and BMP: 07/05/19 03:36 07/05/19 03:36 Abnormal Lab Findings: Abnormal Labs 07/04/19 07/04/19 07/05/19 14:20 14:20 03:36 MCH 27 L 27 L Lymphocytes % (Manual) 41.0 H Basophils % (Manual) 5.0 H Basophils # (Manual) 0.4 H Carbon Dioxide 31 H POC Glucose Albumin Triglycerides 07/05/19 07/05/19 07/05/19 03:36 16:07 20:44 MCH Lymphocytes % (Manual) Basophils % (Manual) Basophils # (Manual) Carbon Dioxide POC Glucose 109 H Albumin 3.4 L Triglycerides 184 H
--- NOTE | 2019-07-06 19:10 | Progress Note ---
Assessment and Plan Assessment and plan: Admitted with acute CVA status post TPA, tolerated, symptoms resolved Neuro workup is in progress, unable to get a modified due to morbid obesity Neurologist Dr. Mcgee recommended CT brain with and without contrast today; -- Acute cerebrovascular accident s/p TPA Current Visit: Yes Status: Acute Plan to address problem: S/P TPA ,post TPA protocol followed Patient's dysarthria and weakness completely resolved Unable to obtain MRI/MRA brain due to morbid obesity Neurology advised CT brain with and without contrast Antiplatelets and Lovenox started today Physical therapy occupational therapy, rehabilitation Work Up: CT head without contrast CTA head without contrast CTA neck; ECHO Carotid doppler CT head with and without contrast --Hypertensive emergency present on admission; Current Visit: Yes Status: Acute Plan to address problem: S/P Cardene drip. Blood pressure is well controlled Continue current antihypertensives -- H/O Hypertension Current Visit: Yes Status: Chronic Plan to address problem: Continue antihypertensives --Type 2 diabetes mellitus Current Visit: Yes Status: Chronic Plan to address problem: Accu-Cheks, sliding scale coverage, ADA diet Check hemoglobin A1c heparin 5.7 --Moderate malnutrition; Nutrition supplements and supportive care --DVT prophylaxis Current Visit: Yes Status: Acute . Plan to address problem: Lovenox Monitor closely and adjust management as needed Disposition; follow-up CT brain with and without contrast If CT head W/WO is negative and patient is stable may be discharged home tomorrow with home PT if needed History Interval history: Patient seen and examined medical records reviewed Patient feels better no new complaints Admitted with acute CVA status post TPA, tolerated Neuro workup is in progress, unable to get MRI brain due to morbid obesity Neurologist Dr. Mcgee recommended CT brain with and without contrast today; Patient has no new complaints Speech clear, tolerating regular diet No focal deficits, Vital signs noted Hospitalist Physical - Constitutional Vitals: Temp Pulse Resp BP Pulse Ox 98.1 F 57 L 16 143/71 94 07/06/19 07:58 07/06/19 18:51 07/06/19 08:00 07/06/19 18:51 07/06/19 18:51 General appearance: Present: no acute distress, well-nourished, obese (morbidly obese), other (clear speech) - EENT Eyes: Present: PERRL, EOM intact - Neck Neck: Present: supple, normal ROM - Respiratory Respiratory effort: normal Respiratory: bilateral: diminished, negative: rales, rhonchi, wheezing - Cardiovascular Rhythm: regular Heart Sounds: Present: S1 & S2 - Extremities Extremities: no ischemia, No edema - Abdominal General gastrointestinal: soft, non-tender, non-distended, normal bowel sounds - Integumentary Integumentary: Present: clear, warm - Psychiatric Psychiatric: appropriate mood/affect, cooperative - Neurologic Neurologic: CNII-XII intact, moves all extremities Results - Labs CBC & Chem 7: 07/05/19 03:36 07/05/19 03:36 Labs: Laboratory Last Values WBC 9.6 K/mm3 (4.5-11.0) 07/05/19 03:36 RBC 4.07 M/mm3 (3.65-5.03) 07/05/19 03:36 Hgb 11.1 gm/dl (10.1-14.3) 07/05/19 03:36 Hct 33.8 % (30.3-42.9) 07/05/19 03:36 MCV 83 fl (79-97) 07/05/19 03:36 MCH 27 pg (28-32) L 07/05/19 03:36 MCHC 33 % (30-34) 07/05/19 03:36 RDW 13.6 % (13.2-15.2) 07/05/19 03:36 Plt Count 235 K/mm3 (140-440) 07/05/19 03:36 Add Manual Diff Complete 07/05/19 03:36 Total Counted 100 07/05/19 03:36 Seg Neuts % (Manual) 53.0 % (40.0-70.0) 07/05/19 03:36 0 % 07/05/19 03:36 41.0 % (13.4-35.0) H 07/05/19 03:36 Reactive Lymphs % (Man) 0 % 07/05/19 03:36 3.0 % (0.0-7.3) 07/05/19 03:36 3.0 % (0.0-4.3) 07/05/19 03:36 0 % (0.0-1.8) 07/05/19 03:36 0 % 07/05/19 03:36 0 % 07/05/19 03:36 0 % 07/05/19 03:36 0 % 07/05/19 03:36 Nucleated RBC % Not Reportable 07/05/19 03:36 Seg Neutrophils # Man 5.1 K/mm3 (1.8-7.7) 07/05/19 03:36 Band Neutrophils # 0.0 K/mm3 07/05/19 03:36 3.9 K/mm3 (1.2-5.4) 07/05/19 03:36 Abs React Lymphs (Man) 0.0 K/mm3 07/05/19 03:36 0.3 K/mm3 (0.0-0.8) 07/05/19 03:36 0.3 K/mm3 (0.0-0.4) 07/05/19 03:36 0.0 K/mm3 (0.0-0.1) 07/05/19 03:36 0.0 K/mm3 07/05/19 03:36 0.0 K/mm3 07/05/19 03:36 0.0 K/mm3 07/05/19 03:36 Blast Cells # 0.0 K/mm3 07/05/19 03:36 WBC Morphology Not Reportable 07/05/19 03:36 Hypersegmented Neuts Not Reportable 07/05/19 03:36 Hyposegmented Neuts Not Reportable 07/05/19 03:36 Hypogranular Neuts Not Reportable 07/05/19 03:36 Not Reportable 07/05/19 03:36 Not Reportable 07/05/19 03:36 Not Reportable 07/05/19 03:36 Not Reportable 07/05/19 03:36 Not Reportable 07/05/19 03:36 Not Reportable 07/05/19 03:36 Consistent w auto 07/05/19 03:36 Not Reportable 07/05/19 03:36 Plt Clumps, EDTA Not Reportable 07/05/19 03:36 Not Reportable 07/05/19 03:36 Not Reportable 07/05/19 03:36 Not Reportable 07/05/19 03:36 Plt Morphology Comment Not Reportable 07/05/19 03:36 RBC Morphology Normal 07/05/19 03:36 Dimorphic RBCs Not Reportable 07/05/19 03:36 Not Reportable 07/05/19 03:36 Not Reportable 07/05/19 03:36 Not Reportable 07/05/19 03:36 Not Reportable 07/05/19 03:36 Not Reportable 07/05/19 03:36 Not Reportable 07/05/19 03:36 Not Reportable 07/05/19 03:36 Not Reportable 07/05/19 03:36 Not Reportable 07/05/19 03:36 Not Reportable 07/05/19 03:36 Not Reportable 07/05/19 03:36 Not Reportable 07/05/19 03:36 Not Reportable 07/05/19 03:36 Not Reportable 07/05/19 03:36 Not Reportable 07/05/19 03:36 Not Reportable 07/05/19 03:36 Not Reportable 07/05/19 03:36 Not Reportable 07/05/19 03:36 Not Reportable 07/05/19 03:36 Acanthocytes (Spur) Not Reportable 07/05/19 03:36 Rouleaux Not Reportable 07/05/19 03:36 Not Reportable 07/05/19 03:36 Not Reportable 07/05/19 03:36 Not Reportable 07/05/19 03:36 Not Reportable 07/05/19 03:36 Hem Pathologist Commnt No 07/05/19 03:36 PT 12.9 Sec. (12.2-14.9) 07/04/19 14:20 INR 1.00 (0.87-1.13) 07/04/19 14:20 APTT 26.7 Sec. (24.2-36.6) 07/04/19 14:20 16.5 Sec. (15.1-19.6) 07/04/19 14:20 Sodium 137 mmol/L (137-145) 07/05/19 03:36 Potassium 4.2 mmol/L (3.6-5.0) 07/05/19 03:36 Chloride 100.5 mmol/L (98-107) 07/05/19 03:36 Carbon Dioxide 28 mmol/L (22-30) 07/05/19 03:36 13 mmol/L 07/05/19 03:36 BUN 12 mg/dL (7-17) 07/05/19 03:36 0.9 mg/dL (0.7-1.2) 07/05/19 03:36 Estimated GFR > 60 ml/min 07/05/19 03:36 13 % 07/05/19 03:36 Glucose 88 mg/dL (65-100) 07/05/19 03:36 POC Glucose 99 (70-105) 07/06/19 16:12 5.7 % (4-6) 07/05/19 03:36 Calcium 8.9 mg/dL (8.4-10.2) 07/05/19 03:36 0.60 mg/dL (0.1-1.2) 07/05/19 03:36 AST 18 units/L (5-40) 07/05/19 03:36 ALT 13 units/L (7-56) 07/05/19 03:36 71 units/L (35-129) 07/05/19 03:36 < 0.010 ng/mL (0.00-0.029) 07/04/19 14:20 7.4 g/dL (6.3-8.2) 07/05/19 03:36 3.4 g/dL (3.9-5) L 07/05/19 03:36 0.9 % 07/05/19 03:36 Triglycerides 184 mg/dL (2-149) H 07/05/19 16:07 Cholesterol 173 mg/dL (50-199) 07/05/19 16:07 121 mg/dL (50-130) 07/05/19 16:07 41 mg/dL (40-59) 07/05/19 16:07 4.21 % 07/05/19 16:07 Active Medications - Current Medications Current Medications: Generic Name Dose Route Start Last Admin Trade Name Freq PRN Reason Stop Dose Admin Alprazolam 0.25 mg 07/04/19 17:47 07/05/19 22:03 Xanax PO 0.25 mg Q8H PRN Administration Anxiety Amlodipine Besylate 10 mg 07/04/19 17:00 07/06/19 11:00 Norvasc PO 10 mg QDAY TAYLOR Administration Aspirin 325 mg 07/06/19 10:00 07/06/19 11:00 Aspirin PO 325 mg QDAY TAYLOR Administration Atorvastatin Calcium 40 mg 07/05/19 22:00 08/04/19 22:03 Lipitor PO 40 mg QHS TAYLOR Administration Carvedilol 12.5 mg 07/04/19 16:44 07/06/19 11:19 Coreg PO 12.5 mg BID TAYLOR Administration Dextrose 50 ml 07/05/19 22:07 D50w (25gm) Syringe IV PRN PRN Hypoglycemia Enoxaparin Sodium 40 mg 07/06/19 10:00 07/06/19 11:00 Lovenox SUB-Q 40 mg QDAY TAYLOR Administration Famotidine 20 mg 07/06/19 22:00 Pepcid PO BID TAYLOR Hydromorphone HCl 1 mg 07/04/19 15:40 07/04/19 15:43 Dilaudid IV 1 mg Q3HR PRN Administration Pain , Severe (7-10) Insulin Human Regular 0 units 07/06/19 07:30 07/06/19 16:34 Humulin R SUB-Q Not Given ACHS [facility] Protocol Labetalol HCl 10 mg 07/04/19 13:59 07/04/19 14:15 Normodyne IV 10 mg Q5MIN PRN Administration to maintain SBP < 180 Losartan Potassium 100 mg 07/04/19 16:50 07/06/19 11:00 Cozaar PO 100 mg QDAY TAYLOR Administration Oxycodone/Acetaminophen 1 tab 07/04/19 17:47 07/06/19 14:03 Percocet 5/325 PO 1 tab Q6H PRN Administration Pain, Moderate (4-6) Sodium Chloride 10 ml 07/04/19 22:00 07/06/19 11:00 Sodium Chloride Flush Syringe 10 Ml IV 10 ml BID TAYLOR Administration Sodium Chloride 10 ml 07/04/19 17:47 Sodium Chloride Flush Syringe 10 Ml IV PRN PRN LINE FLUSH Nutrition/Malnutrition Assess - Dietary Evaluation Nutrition/Malnutrition Findings: Nutrition Notes Start: 07/05/19 10:27 Freq: Status: Active Protocol: Document 07/06/19 15:52 OH (Rec: 07/06/19 16:08 OH [id number]) Nutrition Notes Initial or Follow up Assessment Current Diagnosis Diabetes,Stroke Current Diet cardiac/consitent CHO Labs/Tests Reviewed Pertinent Medications Lovenox Humulin Height 5 ft 7 in Usual Body Weight 113.3 kg [place] Body Weight (kg) 61.36 Intake Prior to Admission Good Weight Status Obese Subjective/Other Information f/u: Pt. sitting in chair answering questions appropriately. No n/v. Appetite has been poor in hospital. She would like a snack and additional fruit/ vegetable on her tray. Pt. doesn't consume milk/cheese. Pt. reports prior diabetes education. She checks bloodsugar periodically. Percent of energy/protein needs met: 40/40% Burn Absent Trauma Absent GI Symptoms None Current % PO Poor (25-49%) Protein-Calorie Malnutrition Non-Severe #2 Nutrition Diagnosis Food and nutrition-related knowledge deficit Etiology inadequate diabetes related education As Evidenced by Signs and Symptoms questions raised regarding general diabetes managment #1 Nutrition Diagnosis Inadequate oral intake Etiology poor appetite As Evidenced by Signs and Symptoms <75% PRO/KCALS goal met via po intake Is patient on ventilator? No Is Patient Ambulatory and/or Out of Bed Yes REE-([place]. Jeor-ambulatory/OOB) [ 0 NUTR.MSJOOB] Kcal/Kg value to use for calculation 25 Calculation Used for Recommendations Kcal/kg Additional Notes FLUID: 1mL/kcal PROTEIN: 0.8-1 G/KG 49-61 g /DAY 61 kg IBW 3706-0412 KCAL/D Nutrition Intervention Change Diet Order: Cont cardiac/consistent CHO Teaching Recipient Patient Learning Readiness Good Teaching Methods Discussion,Handout Response to Teaching Verbalize understanding, Reinforcement needed Education Handouts Provided Provided ADA handout discussing diabetes goals/ recommendations. Enc pt to f/u w/PCP on a routine basis. Reviewed CHO sources/freq/amt and routine monitoring of bloodsugar levels. Sugg pt f/u w/free diabetes education class through [facility]. Barriers to Learning Cognitive/Verbal,Motivation, Physical,Age related,Emotional ,Financial,Environmental Goal #1 po intake to exceed 75% to meet kcal/PRO needs Anticipated Discharge Needs: diabetes educ/reinforcement Follow-Up By: 07/08/19
--- NOTE | 2019-07-06 19:49 | Cat Scan Report ---
CT BRAIN: Without and with contrast 07/06/2019 INDICATION / CLINICAL INFORMATION: I want with and w/o contrast f/u stroke. COMPARISON: 07/04/2019 FINDINGS: BRAIN/INTRACRANIAL STRUCTURES: Unenhanced and enhanced CT images of the brain and a straight no evide nce of acute abnormality. Ventricles and sulci are normal in size and shape. There is no evidence of hemorrhage or mass. There are no abnormal extra-axial fluid collections. Postcontrast images demonstrate no abnormal contrast enhancement. EXTRACRANIAL STRUCTURES: Unremarkable. IMPRESSION: Negative unenhanced and enhanced CT of the brain. All CT scans at this location are performed using dose reduction to ALARA by means of automated expos ure control. Signer Name: Paulino Ellis MD Signed: 07/06/2019 7:45 PM Workstation Name: [id number]
[2019-07-06] MEDS: XANAX PO PRN (21:36)
[2019-07-06] MEDS: PEPCID PO SCH (21:36)
--- NOTE | 2019-07-07 08:27 | Progress Note ---
Subjective Date of service: 07/07/19 Interval history: my own personal read of the CT is the scan is normal and no infarct... zero stroke scale plan EEG Objective - Vital Sign Vital Signs - 12hr 07/06/19 07/06/19 07/06/19 21:25 21:34 23:45 Temperature 98.2 F 98.2 F Pulse Rate 54 L 57 L 62 Respiratory 20 20 18 Rate Blood Pressure 122/50 143/71 119/51 O2 Sat by Pulse 94 95 Oximetry 07/07/19 07/07/19 02:23 04:21 Temperature 98.3 F Pulse Rate 62 54 L Respiratory 18 Rate Blood Pressure 137/71 O2 Sat by Pulse 95 Oximetry - Laboratory Findings CBC and BMP: 07/05/19 03:36 07/05/19 03:36 Abnormal Lab Findings: Abnormal Labs 07/04/19 07/04/19 07/05/19 14:20 14:20 03:36 MCH 27 L 27 L Lymphocytes % (Manual) 41.0 H Basophils % (Manual) 5.0 H Basophils # (Manual) 0.4 H Carbon Dioxide 31 H POC Glucose Albumin Triglycerides 07/05/19 07/05/19 07/05/19 03:36 16:07 20:44 MCH Lymphocytes % (Manual) Basophils % (Manual) Basophils # (Manual) Carbon Dioxide POC Glucose 109 H Albumin 3.4 L Triglycerides 184 H 07/06/19 21:24 MCH Lymphocytes % (Manual) Basophils % (Manual) Basophils # (Manual) Carbon Dioxide POC Glucose 122 H Albumin Triglycerides
[2019-07-07] MEDS: HumuLIN R SUB-Q SCH (08:42)
[2019-07-07] MEDS: LOVENOX SUB-Q SCH (10:42)
[2019-07-07] MEDS: NORVASC PO SCH (10:43)
[2019-07-07] MEDS: COZAAR PO SCH (10:46)
[2019-07-07] MEDS: ASPIRIN PO SCH (10:48)
[2019-07-07] MEDS: PEPCID PO SCH (10:49)
[2019-07-07] MEDS: COREG PO SCH (10:49)
[2019-07-07] MEDS: SODIUM CHLORIDE FLUSH SYRINGE 10 ML IV SCH (10:50)
--- NOTE | 2019-07-07 14:52 | Discharge Summary ---
Providers - Providers Date of Admission: 07/04/19 15:19 Date of discharge: 07/07/19 Attending physician: FREDY SANCHEZ 07/04/19 17:47 Consult to Dietitian/Nutrition [CONS] Routine Physician Instructions: Reason For Exam: Reason for Consult: Diet education 07/04/19 17:49 Consult to Physician [CONS] Routine Comment: Dr. Hudson at bedside @ 16:05- [facility] Consulting Provider: MAYRA HUDSON Physician Instructions: Reason For Exam: acute CVA 07/05/19 18:16 Occupational Therapy Evaluate and Treat [CONS] Routine Comment: Reason For Exam: Ac.CVA s/p TPA Physical Therapy Evaluation and Treat [CONS] Routine Comment: Reason For Exam: Ac CVA Speech Therapy Evaluation and Treat [CONS] Routine Reason For Exam: Acute CVA s/p TPA Primary care physician: DIONNE BROWN Hospitalization Reason for admission: cva Condition: Fair Hospital course: 59-year-old female presenting with past medical history of hypertension and diabetes comes in for chief complaint of dysarthria since afternoon around 12:15 PM [employer]. On admission, patient was noted to have dysarthria. Because of dysarthria it was recommended to give TPA with tele neurologist. As per EMS the patient was transiently aphasic at the time of their arrival. During the EMS ride symptoms improved to dysarthria. Patient's symptoms completely resolved. She was initially admitted to the ICU then later transferred to the floor. Unable to obtain MRI/MRA brain due to morbid obesity. Neurology advised CT brain with and without contrast. CT scan, echocardiogram and carotid Doppler were all within normal limits. PT evaluated the patient and felt that there were no needs. Neurology recommended EEG and once completed patient will discharge. Disposition: DC-01 TO HOME OR SELFCARE Time spent for discharge: 32 - Discharge Diagnoses (1) Acute cerebrovascular accident Status: Acute (2) Stroke Status: Acute (3) Hypertension Status: Chronic Qualifiers: Hypertension type: essential hypertension Qualified Code(s): I10 - Essential (primary) hypertension (4) Type 2 diabetes mellitus Status: Chronic Qualifiers: Diabetes mellitus extermination supervisor insulin use: without extermination supervisor use Core Measure Documentation - Palliative Care Palliative Care/ Comfort Measures: Not Applicable - Core Measures Any of the following diagnoses?: stroke - Stroke Discharge Requirements Statin for LDL = or >70 mg/dl on DC: Yes Anticoag for atrial fib/atrial flutter: Not Applicable Antithrombotic for ischemic stroke: Yes Exam - Constitutional Vitals: Temp Pulse Resp BP Pulse Ox 97.7 F 50 L 18 136/71 98 07/07/19 08:45 07/07/19 10:49 07/07/19 08:45 07/07/19 08:45 07/07/19 08:45 General appearance: Present: no acute distress, well-nourished - EENT Eyes: Present: PERRL ENT: hearing intact, clear oral mucosa - Neck Neck: Present: supple, normal ROM - Respiratory Respiratory effort: normal Respiratory: bilateral: CTA - Cardiovascular Heart Sounds: Present: S1 & S2. Absent: rub, click - Extremities Extremities: pulses symmetrical, No edema Peripheral Pulses: within normal limits - Abdominal General gastrointestinal: Present: soft, non-tender, non-distended, normal bowel sounds Female genitourinary: Present: normal - Integumentary Integumentary: Present: clear, warm, dry - Musculoskeletal Musculoskeletal: gait normal, strength equal bilaterally - Psychiatric Psychiatric: appropriate mood/affect, intact judgment & insight - Neurologic Neurologic: CNII-XII intact, moves all extremities Plan Activity: no restrictions Weight Bearing Status: Full Weight Bearing Diet: low fat, low cholesterol, low salt Follow up with: DIONNE BROWN MD [Primary Care Provider] - 3-5 Days MAYRA HUDSON MD [Staff Physician] - 7 Days Prescriptions: Aspirin 325 mg PO QDAY #30 tablet Carvedilol [Coreg] 12.5 mg PO BID #60 tablet Losartan [Cozaar] 100 mg PO QDAY #30 tablet AtorvaSTATin [Lipitor] 40 mg PO QHS #30 tablet amLODIPine [Norvasc] 10 mg PO QDAY #30 tablet oxyCODONE /ACETAMINOPHEN [Percocet 5/325 mg] 1 tab PO Q6H PRN #8 tablet PRN Reason: Pain, Moderate (4-6)
[2019-07-07 15:07] VITALS: BP 106/78
== END 2019-07-07 17:12 | disposition home or self-care (01) | DRG 62 ==
LOC: ED 13:12 → CC1 15:19 → 4A 07-05 18:30
PROVIDERS: ADMIT Internal Medicine; ATTEND Hospitalist
DX: I63.9 Cerebral infarction, unspecified (principal); I16.1 Hypertensive emergency; E44.0 Moderate protein-calorie malnutrition; Z68.43 Body mass index [BMI] 50.0-59.9, adult; Z79.899 Other long term (current) drug therapy; E11.9 Type 2 diabetes mellitus without complications; I10 Essential (primary) hypertension; R47.1 Dysarthria and anarthria; E66.01 Morbid (severe) obesity due to excess calories; G43.909 Migraine, unspecified, not intractable, without status migrainosus; R29.702 NIHSS score 2
CPT/HCPCS: 36415; 70450; 70470; 70496; 70498; 80048; 80053; 80061; 82962; 83036; 84484; 85007; 85025; 85610; 85670; 85730; 93005; 93010; 93306; G0378; A9270-GY; J1170; J1650; J2997; J7050; Q9967